=== PATIENT | male | born 1975 | race Caucasian/White ===

== ENCOUNTER 2022-02-14 02:43 | Inpatient (IN) | payer OTHER ==
[~2022-02-14] VITALS: Ht 182.9 cm; Wt 91.7 kg
[2022-02-14] MEDS ORDERED: SODIUM CHLORIDE 0.9% 1,000 ML IVB ONE (03:00)
[2022-02-14] MEDS ORDERED: ONDANSETRON HCL 4 MG/2 ML VIAL IV PRN ×2 (03:15→06:30)
[2022-02-14 03:57] LABS: Basophils # (auto) 0.1 10 ^3/uL (0-0.2); Basophils % (auto) 1.2 % (0.0-2.0); Eosinophils # (auto) 0 10 ^3/uL (0-0.8); Eosinophils % (auto) 0.2 % (0.0-7.0); Hematocrit 36.2 % (41.0-53.0); Hemoglobin 12.5 g/dL (13.5-17.5); Lymphocytes # (auto) 0.4 10 ^3/uL (0.4-5.4); Lymphocytes % (auto) 5.3 % (10.0-50.0); Mean Corpuscular Hemoglobin 33.2 pg (28.0-32.0); Mean Corpuscular Hgb Conc. 34.5 g/dL (32.0-36.0); Mean Corpuscular Volume 96.2 fL (80.0-100.0); Monocytes # (auto) 0.5 10 ^3/uL (0-1.3); Monocytes % (auto) 7.1 % (0.0-12.0); Neutrophils # (auto) 5.7 10 ^3/uL (1.6-8.6); Neutrophils % (auto) 86.2 % (37.0-80.0); Nucleated Red Blood Cells % 0.1 %; Red Blood Cells 3.76 10^6/uL (4.5-5.90); Red Cell Distribution Width 16.1 % (11.8-14.3); White Blood Cell 6.7 10^3/uL (4.4-10.8)
[2022-02-14] MEDS ORDERED: SODIUM CHLORIDE 0.9% 1,000 ML IV ONE (04:15)
[2022-02-14] MEDS ORDERED: MEROPENEM 1GM IVPB 100 ML IV ONE (04:15)
[2022-02-14 04:16] LABS: Albumin 2.9 g/dL (3.4-5.0); Calcium 8.1 mg/dL (8.5-10.1)
[2022-02-14 04:20] LABS: Bilirubin, Total 1.1 mg/dL (0.2-1.0); Total Protein 6.1 g/dL (6.4-8.2)
[2022-02-14] MEDS: HYDROmorphone HCL 2 MG/ML VL/or syr IV PRN ×3 (04:28→19:48)
[2022-02-14 06:02] LABS: BUN/Creatinine Ratio 13.7
[2022-02-14] MEDS ORDERED: D5W/SOD CHLO 0.9% 1,000 ML IV SCH (06:30)
[2022-02-14] MEDS ORDERED: ACETAMINOPHEN 325 MG TAB PO PRN (06:30)
[2022-02-14] MEDS: HYDROcodone-ACET 5/325MG TAB PO PRN ×3 (10:16→23:33)
[2022-02-14] MEDS: PANTOPRAZOLE 40 MG/10 ML VIAL INJ IV SCH (10:17)
[2022-02-14] MEDS ORDERED: LACTATED RINGER'S 1,000 ML IV SCH (10:30)
[2022-02-14] MEDS: cefTRIAXone 1GM/50ML D5W 50 ML IV SCH (10:52)
[2022-02-14 11:26] LABS: Urine Bacteria NONE SEEN /hpf (None Seen); Urine Blood 1+ /uL (Negative); Urine Mucus FEW (None Seen); Urine Specific Gravity 1.022 (1.001-1.035); Urine WBC 1 /hpf (0 - 3)
[2022-02-14] MEDS: LACTATED RINGER'S 1,000 ML IV SCH ×2 (14:12→20:59)
[2022-02-14] MEDS: metroNIDAZOLE 500MG/100ML 100 ML IV SCH ×2 (15:05→22:08)
[2022-02-14] MEDS ORDERED: OMEP20TA PO (15:25)
[2022-02-14 22:00] VITALS: BP 111/78
[2022-02-15] MEDS: HYDROmorphone HCL 2 MG/ML VL/or syr IV PRN ×5 (01:52→22:42)
[2022-02-15 05:00] VITALS: BP 127/84
[2022-02-15 06:01] LABS: Basophils # (auto) 0 10 ^3/uL (0-0.2); Basophils % (auto) 0.3 % (0.0-2.0); Eosinophils # (auto) 0.1 10 ^3/uL (0-0.8); Hematocrit 35.2 % (41.0-53.0); Hemoglobin 12.3 g/dL (13.5-17.5); Lymphocytes # (auto) 0.7 10 ^3/uL (0.4-5.4); Lymphocytes % (auto) 10.8 % (10.0-50.0); Mean Corpuscular Volume 97.3 fL (80.0-100.0); Monocytes # (auto) 0.9 10 ^3/uL (0-1.3); Monocytes % (auto) 12.9 % (0.0-12.0); Neutrophils # (auto) 5.1 10 ^3/uL (1.6-8.6); Red Blood Cells 3.61 10^6/uL (4.5-5.90); Red Cell Distribution Width 16.3 % (11.8-14.3); White Blood Cell 6.8 10^3/uL (4.4-10.8)
[2022-02-15 06:11] LABS: Calcium 7.8 mg/dL (8.5-10.1); Potassium 3.6 mmol/L (3.5-5.1)
[2022-02-15 06:18] LABS: Albumin 2.4 g/dL (3.4-5.0); BUN/Creatinine Ratio 9.8; Bilirubin, Total 0.9 mg/dL (0.2-1.0); Total Protein 5.6 g/dL (6.4-8.2)
[2022-02-15] MEDS: metroNIDAZOLE 500MG/100ML 100 ML IV SCH (06:20)
[2022-02-15] MEDS: LACTATED RINGER'S 1,000 ML IV SCH ×4 (06:20→23:20)
[2022-02-15] MEDS: HYDROcodone-ACET 5/325MG TAB PO PRN ×2 (07:00→13:20)
[2022-02-15 09:30] VITALS: BP 112/77
[2022-02-15] MEDS: cefTRIAXone 1GM/50ML D5W 50 ML IV SCH (09:39)
[2022-02-15] MEDS: PANTOPRAZOLE 40 MG/10 ML VIAL INJ IV SCH (09:39)
[2022-02-15 12:55] VITALS: BP 122/83
[2022-02-15] MEDS: MEROPENEM 1GM IVPB 100 ML IV SCH ×2 (13:53→22:13)
[2022-02-15 16:55] VITALS: BP 124/83
[2022-02-15 17:03] LABS: Cholesterol 107 mg/dL (< 200)
[2022-02-15 17:06] LABS: HDL Cholesterol 48 mg/dL (40-59); LDL Cholesterol 48 mg/dL (< 100); Triglycerides 86 mg/dL (< 150)
[2022-02-15 22:00] VITALS: BP 119/79
[2022-02-16] MEDS: HYDROmorphone HCL 2 MG/ML VL/or syr IV PRN ×6 (01:49→20:53)
[2022-02-16] MEDS: LACTATED RINGER'S 1,000 ML IV SCH ×3 (04:56→22:47)
[2022-02-16 05:00] VITALS: BP 124/81
[2022-02-16] MEDS: MEROPENEM 1GM IVPB 100 ML IV SCH ×3 (05:00→22:19)
[2022-02-16 07:10] LABS: Basophils # (auto) 0 10 ^3/uL (0-0.2); Basophils % (auto) 0.3 % (0.0-2.0); Eosinophils # (auto) 0.1 10 ^3/uL (0-0.8); Eosinophils % (auto) 1.5 % (0.0-7.0); Hematocrit 31.6 % (41.0-53.0); Lymphocytes # (auto) 0.6 10 ^3/uL (0.4-5.4); Lymphocytes % (auto) 8.5 % (10.0-50.0); Mean Corpuscular Hemoglobin 33.7 pg (28.0-32.0); Mean Corpuscular Hgb Conc. 34.7 g/dL (32.0-36.0); Mean Corpuscular Volume 96.9 fL (80.0-100.0); Monocytes # (auto) 0.6 10 ^3/uL (0-1.3); Monocytes % (auto) 8.3 % (0.0-12.0); Neutrophils % (auto) 81.4 % (37.0-80.0); Red Blood Cells 3.26 10^6/uL (4.5-5.90); Red Cell Distribution Width 15.6 % (11.8-14.3); White Blood Cell 7.4 10^3/uL (4.4-10.8)
[2022-02-16 07:24] LABS: INR 1.02 (0.9-1.15); Partial Thromboplastin Time 34.7 sec (23.6-33.0)
[2022-02-16 07:31] LABS: Albumin 2.1 g/dL (3.4-5.0); BUN/Creatinine Ratio 11.3; Calcium 7.8 mg/dL (8.5-10.1); Potassium 3.3 mmol/L (3.5-5.1)
[2022-02-16 07:33] LABS: Bilirubin, Total 0.7 mg/dL (0.2-1.0); Total Protein 5.3 g/dL (6.4-8.2)
[2022-02-16] MEDS: PANTOPRAZOLE 40 MG/10 ML VIAL INJ IV SCH (09:19)
[2022-02-16 09:25] VITALS: BP 122/73
[2022-02-16] MEDS ORDERED: POTASSIUM CHL 20 Meq TABLET PO ONE (11:45)
[2022-02-16 12:59] VITALS: BP 112/57
[2022-02-16 17:10] VITALS: BP 109/71
[2022-02-16] MEDS: HYDROcodone-ACET 5/325MG TAB PO PRN ×2 (18:31→22:42)
[2022-02-16 23:03] VITALS: BP 112/81
[2022-02-17] MEDS: HYDROmorphone HCL 2 MG/ML VL/or syr IV PRN ×8 (00:14→23:00)
[2022-02-17] MEDS: LACTATED RINGER'S 1,000 ML IV SCH ×2 (02:00→20:31)
[2022-02-17 05:00] VITALS: BP 127/89
[2022-02-17] MEDS: MEROPENEM 1GM IVPB 100 ML IV SCH ×4 (05:22→23:02)
[2022-02-17] MEDS: HYDROcodone-ACET 5/325MG TAB PO PRN ×3 (05:23→20:30)
[2022-02-17 07:13] LABS: Basophils # (auto) 0 10 ^3/uL (0-0.2); Basophils % (auto) 0.2 % (0.0-2.0); Eosinophils # (auto) 0.2 10 ^3/uL (0-0.8); Eosinophils % (auto) 2.4 % (0.0-7.0); Hematocrit 32.5 % (41.0-53.0); Hemoglobin 11.2 g/dL (13.5-17.5); Lymphocytes # (auto) 0.7 10 ^3/uL (0.4-5.4); Lymphocytes % (auto) 10.3 % (10.0-50.0); Mean Corpuscular Hemoglobin 33.4 pg (28.0-32.0); Mean Corpuscular Hgb Conc. 34.5 g/dL (32.0-36.0); Mean Corpuscular Volume 96.7 fL (80.0-100.0); Monocytes # (auto) 0.6 10 ^3/uL (0-1.3); Monocytes % (auto) 8.8 % (0.0-12.0); Neutrophils # (auto) 5.1 10 ^3/uL (1.6-8.6); Neutrophils % (auto) 78.3 % (37.0-80.0); Red Blood Cells 3.36 10^6/uL (4.5-5.90); Red Cell Distribution Width 15.5 % (11.8-14.3); White Blood Cell 6.6 10^3/uL (4.4-10.8)
[2022-02-17 07:26] LABS: Albumin 2.2 g/dL (3.4-5.0); Calcium 8.2 mg/dL (8.5-10.1); Potassium 3.8 mmol/L (3.5-5.1)
[2022-02-17 07:30] LABS: BUN/Creatinine Ratio 6.8; Bilirubin, Total 0.6 mg/dL (0.2-1.0); Total Protein 5.7 g/dL (6.4-8.2)
[2022-02-17 09:00] VITALS: BP 119/81
[2022-02-17] MEDS: PANTOPRAZOLE 40 MG/10 ML VIAL INJ IV SCH (09:01)
[2022-02-17 13:00] VITALS: BP 141/93
[2022-02-17] MEDS ORDERED: IOHEXOL 300 MG/ML 100ML BOTTLE IJ ONE (14:19)
[2022-02-17] MEDS ORDERED: OMNIPAQUE ORAL SOLN 500ml 12mg/ml PO ONE (14:19)
[2022-02-17 17:01] VITALS: BP 126/83
[2022-02-17 22:00] VITALS: BP 129/80
[2022-02-18] MEDS: HYDROcodone-ACET 5/325MG TAB PO PRN ×3 (00:30→22:06)
[2022-02-18 05:00] VITALS: BP 123/83
[2022-02-18] MEDS: MEROPENEM 1GM IVPB 100 ML IV SCH ×3 (05:59→22:06)
[2022-02-18] MEDS: HYDROmorphone HCL 2 MG/ML VL/or syr IV PRN ×4 (05:59→19:33)
[2022-02-18] MEDS: PANTOPRAZOLE 40 MG/10 ML VIAL INJ IV SCH (09:06)
[2022-02-18 09:10] VITALS: BP 126/69
[2022-02-18] MEDS: LACTATED RINGER'S 1,000 ML IV SCH (09:59)
[2022-02-18 13:07] VITALS: BP 122/83
[2022-02-18 17:00] VITALS: BP 123/75
[2022-02-18 22:00] VITALS: BP 130/90
[2022-02-19] MEDS: HYDROmorphone HCL 2 MG/ML VL/or syr IV PRN ×7 (00:04→23:10)
[2022-02-19] MEDS: LACTATED RINGER'S 1,000 ML IV SCH ×2 (02:01→18:50)
[2022-02-19] MEDS: HYDROcodone-ACET 5/325MG TAB PO PRN ×2 (02:24→17:31)
[2022-02-19 05:00] VITALS: BP 110/66
[2022-02-19] MEDS: MEROPENEM 1GM IVPB 100 ML IV SCH ×3 (05:39→22:05)
[2022-02-19 06:37] LABS: Potassium 4.2 mmol/L (3.5-5.1)
[2022-02-19 06:47] LABS: Albumin 2.2 g/dL (3.4-5.0); BUN/Creatinine Ratio 6.4; Bilirubin, Total 0.4 mg/dL (0.2-1.0); Calcium 8.7 mg/dL (8.5-10.1); Total Protein 5.7 g/dL (6.4-8.2)
[2022-02-19 08:55] VITALS: BP 128/69
[2022-02-19 13:00] VITALS: BP 103/78
[2022-02-19 17:00] VITALS: BP 143/83
[2022-02-19 21:24] VITALS: BP 112/83
[2022-02-20] MEDS: HYDROcodone-ACET 5/325MG TAB PO PRN ×3 (00:16→09:15)
[2022-02-20 05:00] VITALS: BP 122/81
[2022-02-20] MEDS: MEROPENEM 1GM IVPB 100 ML IV SCH (05:56)
[2022-02-20] MEDS: HYDROmorphone HCL 2 MG/ML VL/or syr IV PRN (05:59)
[2022-02-20 07:19] LABS: Albumin 2.2 g/dL (3.4-5.0); Calcium 8.6 mg/dL (8.5-10.1); Potassium 3.9 mmol/L (3.5-5.1)
[2022-02-20 07:22] LABS: BUN/Creatinine Ratio 6.1; Bilirubin, Total 0.4 mg/dL (0.2-1.0)
[2022-02-20] MEDS ORDERED: HYDROmorphone HCL 2 MG/ML VL/or syr IV PRN (08:30)
[2022-02-20 09:00] VITALS: BP 130/93
[2022-02-20] MEDS: LACTATED RINGER'S 1,000 ML IV SCH ×2 (11:30→19:53)
[2022-02-20] MEDS: KETOROLAC TROMETH 30 MG/ML 1ML VIAL IV PRN ×2 (12:19→18:26)
[2022-02-20 13:00] VITALS: BP 105/75
[2022-02-20] MEDS ORDERED: HYDROcodone-ACET 5/325MG TAB PO PRN (15:15)
[2022-02-20] MEDS ORDERED: PANTOPRAZOLE 40 MG/10 ML VIAL INJ IV ONE (16:45)
[2022-02-20 17:00] VITALS: BP 131/95
[2022-02-20 22:20] VITALS: BP 130/72
[2022-02-21] MEDS: KETOROLAC TROMETH 30 MG/ML 1ML VIAL IV PRN ×2 (04:40→15:44)
[2022-02-21 05:00] VITALS: BP 138/81
[2022-02-21 06:21] LABS: Potassium 4.1 mmol/L (3.5-5.1)
[2022-02-21 06:30] LABS: BUN/Creatinine Ratio 7.4; Bilirubin, Total 0.4 mg/dL (0.2-1.0); Calcium 8.4 mg/dL (8.5-10.1); Total Protein 5.7 g/dL (6.4-8.2)
[2022-02-21 09:00] VITALS: BP 129/93
[2022-02-21] MEDS: PANTOPRAZOLE 40 MG/10 ML VIAL INJ IV SCH (09:29)
[2022-02-21 10:07] LABS: Hepatitis B Surface Antibody Negative (Negative)
[2022-02-21 10:39] LABS: Hepatitis A Total Antibody Positive (Negative)
[2022-02-21] MEDS ORDERED: MORPHINE SULFATE INJ 2 MG/ml SYRG IV PRN (11:15)
[2022-02-21 12:59] LABS: Hepatitis C Antibody Negative (Negative)
[2022-02-21 13:00] VITALS: BP 114/76
[2022-02-21] MEDS: traMADol HCL 50 MG TAB PO PRN ×2 (13:16→23:41)
[2022-02-21] MEDS: LACTATED RINGER'S 1,000 ML IV SCH ×2 (13:17→21:20)
[2022-02-21 17:00] VITALS: BP 119/79
[2022-02-21 22:00] VITALS: BP 121/83
[2022-02-22] MEDS: KETOROLAC TROMETH 30 MG/ML 1ML VIAL IV PRN ×2 (01:35→10:17)
[2022-02-22 05:00] VITALS: BP 106/79
[2022-02-22 06:25] LABS: Basophils # (auto) 0.1 10 ^3/uL (0-0.2); Basophils % (auto) 0.7 % (0.0-2.0); Eosinophils # (auto) 0.1 10 ^3/uL (0-0.8); Eosinophils % (auto) 1.5 % (0.0-7.0); Hematocrit 30.7 % (41.0-53.0); Hemoglobin 10.4 g/dL (13.5-17.5); Lymphocytes # (auto) 1.2 10 ^3/uL (0.4-5.4); Lymphocytes % (auto) 15.3 % (10.0-50.0); Mean Corpuscular Hemoglobin 32.4 pg (28.0-32.0); Mean Corpuscular Volume 95.3 fL (80.0-100.0); Monocytes # (auto) 0.6 10 ^3/uL (0-1.3); Monocytes % (auto) 8.3 % (0.0-12.0); Neutrophils # (auto) 5.7 10 ^3/uL (1.6-8.6); Neutrophils % (auto) 74.2 % (37.0-80.0); Nucleated Red Blood Cells % 0.1 %; Red Blood Cells 3.22 10^6/uL (4.5-5.90); Red Cell Distribution Width 16.4 % (11.8-14.3); White Blood Cell 7.7 10^3/uL (4.4-10.8)
[2022-02-22 06:46] LABS: Calcium 8.3 mg/dL (8.5-10.1); Potassium 3.5 mmol/L (3.5-5.1)
[2022-02-22 06:51] LABS: BUN/Creatinine Ratio 6.6; Bilirubin, Total 0.3 mg/dL (0.2-1.0); Total Protein 5.5 g/dL (6.4-8.2)
[2022-02-22 09:00] VITALS: BP 129/90
[2022-02-22] MEDS: PANTOPRAZOLE 40 MG/10 ML VIAL INJ IV SCH (10:00)
[2022-02-22 13:00] VITALS: BP 101/67
[2022-02-22 14:05] VITALS: BP 101/67
== END 2022-02-22 15:42 | disposition home or self-care (01) | DRG 439 ==
LOC: ER 02:43 → EDBD 02:43 → OVERFLOW 10:20 → TELE-EAST 13:59 → EAST 14:44
PROVIDERS: ADMIT Registered Nurse; ATTEND Internal Medicine
DX: K85.90 Acute pancreatitis without necrosis or infection, unspecified (principal); K86.3 Pseudocyst of pancreas; E44.0 Moderate protein-calorie malnutrition; K86.1 Other chronic pancreatitis; K76.0 Fatty (change of) liver, not elsewhere classified; Z68.28 Body mass index [BMI] 28.0-28.9, adult; Z20.822 Contact with and (suspected) exposure to COVID-19; R79.89 Other specified abnormal findings of blood chemistry
CPT/HCPCS: 36415; 74177; 76700; 80053; 80061; 81001; 82105; 82150; 82962; 83036; 83605; 83690; 85025; 85610; 85730; 86301; 86704; 86706; 86708; 86803; 87340; 93005; 96361; 96365; 96366; 96375; 99291; C9113; G0378; J0696; J1885; J2185; J2405; J3490